=== PATIENT | male | born 1990 | race Caucasian/White ===

== ENCOUNTER 2017-11-02 00:39 | Emergency (ER) | payer SELFPAY ==
[~2017-11-02] VITALS: Ht 172.7 cm; Wt 84.2 kg
[2017-11-02 00:44] VITALS: TEMP 36.8; Ht 172.7 cm; Wt 84.2 kg
--- NOTE | 2017-11-02 01:13 | EMERGENCY ROOM VISIT NOTE ---
History First contact with patient: 00:48 Chief Complaint: SORETHROAT Stated Complaint: SORE THROAT History of Present Illness The patient is a 27 year old male who presents to the Emergency Room with complaints of sore throat. The patient reports that this is the "worst sore throat of his life." He states this all began 1 month ago. At that time, he had a sore throat and cough. These resolved and he then developed swelling of his left eye. He was seen by his primary care provider and prescribed antibiotics and steroids. He states that his symptoms resolved and he was okay for 2 weeks, but his sore throat started again 3 days ago. He states it is painful to swallow. He is concerned because he has a history of tonsillitis and has a young child at home. He denies any fevers. He has not taken any medication for his symptoms. He denies any history of seasonal allergies. He denies cough, body aches, abdominal pain, nausea or vomiting. He states his pain is sharp and rates the discomfort a 5/10. Review of Systems A complete 10 point review of systems was reviewed with the patient with pertinent positives and negatives as per history of present illness. All else were negative. Past Medical/Surgical History Medical Problems: (1) Poison milena (2) Poison milena dermatitis Family History No pertinent family history Social History Smoking Status: Never Smoker Marital Status: Housing Status: lives with family Occupation Status: employed Physical Exam Vital Signs Date Time Temp Pulse Resp B/P (MAP) Pulse Ox O2 Delivery O2 Flow Rate FiO2 11/02/17 01:38 91 18 129/80 97 Room Air 11/02/17 00:46 Room Air 11/02/17 00:44 36.8 88 16 136/94 97 Room Air Physical Exam VITALS: Vitals are noted on the nurse's note and reviewed by myself. Vital signs stable. GENERAL: This is a 27-year-old male, in no acute distress, nondiaphoretic, well- developed well-nourished. SKIN: The skin was without rashes. EARS: External auditory canals clear, tympanic membranes pearly rivera without erythema or effusion bilaterally. EYES: Pupils equal round and reactive to light and accommodation. MOUTH: Mucous membranes moist. Tonsils are not enlarged. Pharynx mildly erythematous. No exudate or post nasal drip. NECK: Supple without nuchal rigidity. No lymphadenopathy. HEART: Regular rate and rhythm without murmurs gallops or rubs. LUNGS: Clear to auscultation bilaterally without wheezes, rales or rhonchi. NEURO: Patient was alert and oriented to person place and time. Medical Decision & Procedures Medical Decision Differential diagnosis includes strep pharyngitis, mononucleosis, viral pharyngitis, seasonal allergies, among others. The patient was evaluated as above. His exam is not consistent with strep pharyngitis. Rapid strep swab was negative. Conservative measures were discussed with the patient. He was advised to follow-up with his PCP as needed. He verbalized understanding of my assessment and treatment plan and was discharged home in good condition. Medication Reconcilliation Current Medication List: was personally reviewed by me Blood Pressure Screening Patient's blood pressure: Normal blood pressure Impression Primary Impression: Acute pharyngitis Departure Information Dispostion Home / Self-Care Condition GOOD Referrals No Doctor, Assigned (PCP) Patient Instructions My [facility] Additional Instructions You were seen in the emergency department for your sore throat. The results of your rapid strep screen were found to be negative. For pain and fever control, you can use the following [id number] medicines (if >12 yo): - Regular strength (325mg/tab) Tylenol (acetaminophen) 2 tabs every 4-6 hours as needed. Do not exceed 12 tablets in a 24 hour period. Avoid taking more than 4 grams (4000 mg) of Tylenol per day. This includes any other sources of acetaminophen you may take on a regular basis. - Regular strength (200 mg/tab) Advil (ibuprofen) 3-4 tabs every 6 hours as needed. Do not exceed a dose of 3200 mg per day. - For best results, alternate dosing of Tylenol and Advil. In addition to your prescribed medications, you can also use the following home remedies: - Warm salt-water gargles 3 times per day can soothe your throat and help to fight infection. - Warm tea with honey can soothe your throat. Return to the emergency department if your symptoms persist or worsen over the next 2-3 days despite treatment course outlined above. Return to the emergency department if you develop the following symptoms of: inability to swallow solids , liquids, or drool; excessive wheezing or inability to catch your breath; or intractable fever or pain. Follow up with your primary care provider in 2-3 days from today's emergency department visit. Problem Qualifiers Primary Impression: Acute pharyngitis Pharyngitis/tonsillitis etiology: unspecified etiology Qualified Codes: J02.9 - Acute pharyngitis, unspecified
[2017-11-02 01:38] VITALS: BP 129/80; PULSE 91; O2SAT 97
== END 2017-11-02 01:40 | disposition home or self-care (01) ==
LOC: C.EDB 00:41
DX: J02.9 Acute pharyngitis, unspecified (principal)